=== PATIENT | female | born 1940 | race Caucasian/White ===

== ENCOUNTER → 2017-03-14 | Outpatient (CLI) | payer OTHER, BC ==
[~2017-03-14] MED LIST: CALC600T9 PO; CHOL400C PO; LATA0.009 OPB; LEVO75TA5 PO; LUTE15CA PO; MULT-506 PO; SIMV10TA2 PO; TIMO0.2528 OPB
--- NOTE | 2017-03-14 12:41 | MAMMOGRAPHY REPORT ---
BILATERAL DIGITAL SCREENING MAMMOGRAM WITH CAD: 03/14/2017 TECHNIQUE: Current study was also evaluated with a Computer Aided Detection (CAD) system. Bilateral CC and MLO views were obtained. COMPARISON: Comparison is made to exams dated: 03/08/2016 mammogram, 03/07/2015 mammogram, 03/01/2014 m ammogram, 02/25/2013 mammogram, 02/21/2012 mammogram, and 02/19/2011 mammogram - [facility] [address]. BREAST COMPOSITION: The tissue of both breasts is heterogeneously dense, which may obscure small mas ses. FINDINGS: No suspicious masses, calcifications, or areas of architectural distortion are noted in ei ther breast. There has been no significant interval change compared to prior exams. IMPRESSION: ACR BI-RADS CATEGORY 1: NEGATIVE There is no mammographic evidence of malignancy. A 1 year screening mammogram is recommended. The pa tient will receive written notification of the results. Approximately 10% of breast cancers are not detected with mammography. A negative mammographic report should not delay biopsy if a clinically suggestive mass is present. Bibiana Miles M.D. ah/:03/14/2017 12:18:16 Police Artist: Teresa Avery RT(R)(M), [facility] letter sent: Normal 1/2 BI-RADS Code: ACR BI-RADS Category 1: Negative
== END | disposition home or self-care (01) ==
LOC: C.MAMM 10:14
PROVIDERS: ATTEND Family Medicine
DX: Z12.31 Encounter for screening mammogram for malignant neoplasm of breast (principal)

== ENCOUNTER 2017-07-11 13:44 | Emergency (ER) | payer OTHER, BC ==
[~2017-07-11] VITALS: Ht 154.9 cm; Wt 47.5 kg
[2017-07-11 13:53] VITALS: TEMP 36.5; Ht 154.9 cm; Wt 47.5 kg
[2017-07-11] MEDS ORDERED: CHOL1000 PO (14:09)
[2017-07-11] MEDS ORDERED: TMPOPS2510 OPB (14:09)
[2017-07-11] MEDS ORDERED: LEVO88TA3 PO (14:09)
--- NOTE | 2017-07-11 14:33 | DIAGNOSTIC IMAGING REPORT ---
CHEST ONE VIEW PORTABLE CLINICAL HISTORY: ABDOMINAL PAIN/GI pain COMPARISON STUDY: No previous studies for comparison. FINDINGS: The bones soft tissues and hemidiaphragms are normal. The cardiomediastinal silhouette is normal. The lungs are clear. The pulmonary vasculature is normal. Mild emphysematous change. Mild apical fibrotic change most likely chronic. IMPRESSION: Mild emphysematous change. No acute process. The above report was generated using voice recognition software. It may contain grammatical, syntax or spelling errors. Electronically signed by: Tan Woo M.D. 07/11/2017 2:31 PM Dictated Date/Time: 07/11/2017 2:31 PM
[2017-07-11 14:42] LABS: BASO % 0.4 %; BASO ABS # 0.02 K/uL (0-0.2); EOS % 1.3 %; EOS ABS # 0.07 K/uL (0-0.5); HEMOGLOBIN 15.2 g/dL (12.0-16.0); IG# 0.01 K/uL (0.00-0.02); LYMPH % 20.5 %; LYMPH ABS # 1.11 K/uL (1.2-3.4); MEAN CELL VOLUME 93.6 fL (80-100); MEAN CORPUSCULAR HEMOGLOBIN 32.3 pg (25-34); MEAN CORPUSCULAR HGB CONC 34.5 g/dl (32-36); MEAN PLATELET VOLUME 11.5 fL (7.4-10.4); MONO ABS # 0.27 K/uL (0.11-0.59); NEUT % 72.6 %; NEUT ABS # 3.93 K/uL (1.4-6.5); PLATELET COUNT 184 K/uL (130-400); RED CELL DISTRIBUTION WIDTH CV 13.8 % (11.5-14.5); RED CELL DISTRIBUTION WIDTH SD 47.4 fL (36.4-46.3); WHITE BLOOD COUNT 5.41 K/uL (4.8-10.8)
[2017-07-11 15:00] LABS: ALBUMIN 4.1 gm/dl (3.4-5.0); ALT/SGPT 29 U/L (12-78); BLOOD UREA NITROGEN 18 mg/dl (7-18); CALCIUM 9.6 mg/dl (8.5-10.1); CARBON DIOXIDE 29 mmol/L (21-32); CREATININE 0.71 mg/dl (0.60-1.20); GLUCOSE 94 mg/dl (70-99); LIPASE 268 U/L (73-393); POTASSIUM 4.3 mmol/L (3.5-5.1); SODIUM 139 mmol/L (136-145)
[2017-07-11 15:05] LABS: ALKALINE PHOSPHATASE 66 U/L (45-117); AST/SGOT 24 U/L (15-37)
--- NOTE | 2017-07-11 15:35 | DIAGNOSTIC IMAGING REPORT ---
ULTRASOUND RIGHT UPPER QUADRANT ABDOMEN CLINICAL HISTORY: Right upper quadrant abdominal pain. COMPARISON STUDY: No priors. TECHNIQUE: Real-time, grayscale, and color flow sonography of the right upper quadrant of the abdomen was performed. Images are reviewed in the transverse and longitudinal planes. FINDINGS: Liver: The liver is normal in size and echotexture. There is no intrahepatic biliary ductal dilatation. The main portal vein is patent. Gallbladder: The gallbladder is normal in appearance. No gallstones are identified. There is no gallbladder wall thickening or pericholecystic fluid. A sonographic Claros's sign is reportedly absent. The common bile duct measures up to 0.4 cm in diameter. Pancreas: Visualized portions of the pancreatic head and body are normal in appearance. The splenic vein is patent. Right kidney: Survey images of the right kidney demonstrate normal size and echotexture. There is no hydronephrosis. Ascites: None. IMPRESSION: Unremarkable sonographic assessment of the right upper quadrant. No gallstones are identified. Electronically signed by: Shahab Mena M.D. 07/11/2017 3:34 PM Dictated Date/Time: 07/11/2017 3:33 PM
[2017-07-11 15:56] VITALS: BP 126/73; PULSE 68; O2SAT 96
--- NOTE | 2017-07-11 16:05 | EMERGENCY ROOM VISIT NOTE ---
History Report prepared by Anyi: Bernardo Yoon Under the Supervision of: Dr. Pola Rene M.D. First contact with patient: 13:57 Chief Complaint: ABDOMINAL PAIN Stated Complaint: PAIN IN ABD REFERRED Nursing Triage Summary: pt reports she has left abd started 1 week ago. feels nauseated History of Present Illness The patient is a 77 year old white female with a past medical history of HDL, hypothyroid, PUD who presents to the ED with a cc of intermittent RUQ abdominal pain beginning one week ago. Positive nausea and low back pain. Pain is worsened with movement. Pain improves during middle of the day. No correlation with eating noted. Negative fevers, chills, vomiting, melena, hematochezia, hematemesis, urinary symptoms, chest pain, or SOB. No history of abdominal surgeries. No recent travel. No recent trauma or straining. Last normal bowel movement was today. No tobacco use. Patient seen at PCP's office just prior to arrival and referred to the ED for further evaluation. Source of History: patient Onset: One week ago Position: abdomen (RUQ) Timing: intermittent Modifying Factors (Worsening): movement Modifying Factors (Relieving): other (Middle of the day) Associated Symptoms: + nausea, + back pain (low), No fevers, No chills, No chest pain, No SOB, No vomiting, No melena, No hematochezia, No urinary symptoms Note: Negative: hematemesis. Review of Systems See HPI for pertinent positives and negatives. A total of ten systems were reviewed and were otherwise negative. Past Medical & Surgical Medical Problems: (1) Hyperlipemia (2) Hypothyroid (3) PUD (peptic ulcer disease) Family History Patient reports no known family medical history. Social History Smoking Status: Never Smoker Marital Status: Housing Status: lives with family Occupation Status: retired Current/Historical Medications Scheduled Calcium Carbonate-Vitamin D (Calcium + D), 1 TAB PO QAM Cholecalciferol (Vitamin D3), 1 TAB PO DAILY Levothyroxine Sodium (Levothyroxine Sodium), 1 TAB PO DAILYBB Lutein-Zeaxanthin (Lutein), 1 CAP PO QAM Multivitamin (Multivitamin), 1 TAB PO QAM Simvastatin (Zocor), 10 MG PO QPM Timolol Maleate (Timolol Maleate), 1 DROP OPB QAM Allergies Coded Allergies: Tetanus Toxoids (Verified Allergy, Unknown, RASH, 07/11/17) Physical Exam Vital Signs Date Time Temp Pulse Resp B/P (MAP) Pulse Ox O2 Delivery O2 Flow Rate FiO2 07/11/17 15:56 68 18 126/73 96 Room Air 07/11/17 14:18 64 07/11/17 13:53 36.5 74 18 143/83 98 Room Air Physical Exam GENERAL: Awake, alert, well-appearing, NAD HENT: Normocephalic, atraumatic. EYES: Normal conjunctiva. Sclera non-icteric. NECK: Supple. No nuchal rigidity. FROM. RESPIRATORY: CTAB, no rhonchi, wheezing, crackles CARDIAC: RRR, no MRG ABDOMEN: Soft, ND, BS+. No CVA TTP bilaterally. RUQ TTP. Mild right flank pain. Negative obturator and psoas. MSK: No chest wall TTP, no LE edema NEURO: GCS 15, CN 2-12 intact, moves all 4s on command SKIN: No rash or jaundice noted. Medical Decision & Procedures ER Provider Diagnostic Interpretation: Radiology results as stated below per my review and radiologist interpretation: ULTRASOUND RIGHT UPPER QUADRANT ABDOMEN FINDINGS: Liver: The liver is normal in size and echotexture. There is no intrahepatic biliary ductal dilatation. The main portal vein is patent. Gallbladder: The gallbladder is normal in appearance. No gallstones are identified. There is no gallbladder wall thickening or pericholecystic fluid. A sonographic Claros's sign is reportedly absent. The common bile duct measures up to 0.4 cm in diameter. Pancreas: Visualized portions of the pancreatic head and body are normal in appearance. The splenic vein is patent. Right kidney: Survey images of the right kidney demonstrate normal size and echotexture. There is no hydronephrosis. Ascites: None. IMPRESSION: Unremarkable sonographic assessment of the right upper quadrant. No gallstones are identified. Electronically signed by: Shahab Mena M.D. 07/11/2017 3:34 PM CHEST ONE VIEW PORTABLE FINDINGS: The bones soft tissues and hemidiaphragms are normal. The cardiomediastinal silhouette is normal. The lungs are clear. The pulmonary vasculature is normal. Mild emphysematous change. Mild apical fibrotic change most likely chronic. IMPRESSION: Mild emphysematous change. No acute process. The above report was generated using voice recognition software. It may contain grammatical, syntax or spelling errors. Electronically signed by: Tan Woo M.D. 07/11/2017 2:31 PM Laboratory Results 07/11/17 14:30 Red Blood Count 4.70, Mean Corpuscular Volume 93.6, Mean Corpuscular Hemoglobin 32.3, Mean Corpuscular Hemoglobin Concent 34.5, Mean Platelet Volume 11.5, Neutrophils (%) (Auto) 72.6, Lymphocytes (%) (Auto) 20.5, Monocytes (%) (Auto) 5.0, Eosinophils (%) (Auto) 1.3, Basophils (%) (Auto) 0.4, Neutrophils # (Auto) 3.93, Lymphocytes # (Auto) 1.11, Monocytes # (Auto) 0.27, Eosinophils # (Auto) 0.07, Basophils # (Auto) 0.02 07/11/17 14:30 Test 07/11/17 14:30 White Blood Count 5.41 K/uL (4.8-10.8) Red Blood Count 4.70 M/uL (4.2-5.4) Hemoglobin 15.2 g/dL (12.0-16.0) Hematocrit 44.0 % (37-47) Mean Corpuscular Volume 93.6 fL (80-100) Mean Corpuscular Hemoglobin 32.3 pg (25-34) Mean Corpuscular Hemoglobin Concent 34.5 g/dl (32-36) Platelet Count 184 K/uL (130-400) Mean Platelet Volume 11.5 fL (7.4-10.4) Neutrophils (%) (Auto) 72.6 % Lymphocytes (%) (Auto) 20.5 % Monocytes (%) (Auto) 5.0 % Eosinophils (%) (Auto) 1.3 % Basophils (%) (Auto) 0.4 % Neutrophils # (Auto) 3.93 K/uL (1.4-6.5) Lymphocytes # (Auto) 1.11 K/uL (1.2-3.4) Monocytes # (Auto) 0.27 K/uL (0.11-0.59) Eosinophils # (Auto) 0.07 K/uL (0-0.5) Basophils # (Auto) 0.02 K/uL (0-0.2) RDW Standard Deviation 47.4 fL (36.4-46.3) RDW Coefficient of Variation 13.8 % (11.5-14.5) Immature Granulocyte % (Auto) 0.2 % Immature Granulocyte # (Auto) 0.01 K/uL (0.00-0.02) Urine Color YELLOW Urine Appearance CLEAR (CLEAR) Urine pH 5.0 (4.5-7.5) Urine Specific [place] 1.025 (1.000-1.030) Urine Protein NEG (NEG) Urine Glucose (UA) NEG (NEG) Urine Ketones NEG (NEG) Urine Occult Blood TRACE (NEG) Urine Nitrite NEG (NEG) Urine Bilirubin NEG (NEG) Urine Urobilinogen NEG (NEG) Urine Leukocyte Esterase NEG (NEG) Urine WBC (Auto) 1-5 /hpf (0-5) Urine RBC (Auto) 0-4 /hpf (0-4) Urine Hyaline Casts (Auto) 1-5 /lpf (0-5) Urine Epithelial Cells (Auto) 0-5 /lpf (0-5) Urine Bacteria (Auto) NEG (NEG) Anion Gap 6.0 mmol/L (3-11) Est Creatinine Clear Calc Drug Dose 51.3 ml/min Estimated GFR () 96.6 Estimated GFR (Non- 83.3 BUN/Creatinine Ratio 25.7 (10-20) Calcium Level 9.6 mg/dl (8.5-10.1) Total Bilirubin 0.5 mg/dl (0.2-1) Direct Bilirubin 0.1 mg/dl (0-0.2) Aspartate Amino Transf (AST/SGOT) 24 U/L (15-37) Alanine Aminotransferase (ALT/SGPT) 29 U/L (12-78) Alkaline Phosphatase 66 U/L (45-117) Troponin I < 0.015 ng/ml (0-0.045) Total Protein 8.0 gm/dl (6.4-8.2) Albumin 4.1 gm/dl (3.4-5.0) Lipase 268 U/L (73-393) Laboratory results reviewed by me ECG Indication: abdominal pain Rate (beats per minute): 65 Rhythm: normal sinus Findings: PVC (x2), other (Normal intervals. Normal axis. No other STS or TWI. ) ED Course 1411: The patient was evaluated in room C10. A complete history and physical exam was performed. 1600: I reevaluated the patient. She would like to go home. Discussed results and discharge instructions: she verbalized understanding and agreement. The patient is ready for discharge. Medical Decision The patient is a 77 year old white female with a past medical history of HDL, hypothyroid, PUD who presents to the ED with a cc of intermittent RUQ abdominal pain beginning one week ago. Differential diagnosis includes etiologies such as appendicitis, diverticulitis , PUD, biliary pathology, UTI, pancreatitis, obstruction, mesenteric ischemia, aortic pathology, infections, inflammatory bowel disease, renal colic, as well as others were entertained. Patient was seen and evaluated the bedside. Patient is a very well-appearing 77 -year-old female who is referred for some right upper quadrant pain. Patient denies any urinary symptoms. Patient is under trauma. Patient has not had any prior surgeries to the abdomen. Patient denies nausea but has had the pain. Patient denies any recent strain or heavy lifting. Patient has had a recent bowel movement without any blood. Patient did have blood work completed along with an EKG, troponin, and right upper quadrant ultrasound. Patient also did have a chest x-ray. Patient chest x-ray showed emphysematous change. Her upper quadrant ultrasound didn't show any acute liver or gallbladder pathology. Patient had normal LFTs and lipase. Kidney function which was within normal limits. White blood cell count within normal limits. I did reassess the patient did not have any further pain or vomiting. Patient was told that I did not think that it was likely related to her heart, lungs, liver, pancreas, or gallbladder. Patient also did have a normal urinalysis. Patient EKG was nonischemic with a negative troponin. Patient was told to continue her Protonix and Maalox. Patient was also told she may take Tylenol for some possible musculoskeletal type pain. Patient was told to follow up closely with her primary care physician to return if symptoms worsen. Patient was offered a CT scan but declined this time. Patient was deemed suitable for outpatient follow-up and treatment. Patient was given strict follow-up, discharge, and return precautions. All questions were answered. Patient was deemed suitable for outpatient follow-up at this time. Patient agreed with the plan of care and was safely discharged home. Medication Reconcilliation Current Medication List: was personally reviewed by me Blood Pressure Screening Patient's blood pressure: Normal blood pressure Blood pressure disposition: Did not require urgent referral Impression Primary Impression: PUD (peptic ulcer disease) Additional Impression: RUQ pain Scribe Attestation The scribe's documentation has been prepared under my direction and personally reviewed by me in its entirety. I confirm that the note above accurately reflects all work, treatment, procedures, and medical decision making performed by me. Departure Information Dispostion Home / Self-Care Referrals Alex Pedro M.D. (PCP) Patient Instructions Abdominal Pain, My [facility] Additional Instructions Please return to the emergency department if you have worsening or recurrent symptoms not amenable to at-home treatment. Please call for a follow-up appointment with her primary care physician. Please take your medications as prescribed. If you have other concerns and/or complaints please feel free to also call your primary care physician's office or return the ED for further evaluation, management, and treatment. You may take tylenol 650 mg every 6 hours as needed for pain. Continue to take Protonix. You may also take Maalox. Take your medications as prescribed. You have been examined and treated today on an emergency basis only. This is not a substitute for, or an effort to provide, complete comprehensive medical care. It is impossible to recognize and treat all injuries or illnesses in a single emergency department visit. It is therefore important that you follow up closely with [facility], your PCP, and/or your specialist(s). Call as soon as possible for an appointment. Thank you for your time and consideration. I look forward to speaking with you again soon. Please don't hesitate to call us if you have any questions. Problem Qualifiers
== END 2017-07-11 16:22 | disposition home or self-care (01) ==
LOC: C.EDB 13:44 → C.EDC 16:22
DX: K27.9 Peptic ulcer, site unspecified, unspecified as acute or chronic, without hemorrhage or perforation (principal); R10.11 Right upper quadrant pain; R11.0 Nausea; M54.5 Low back pain; E78.5 Hyperlipidemia, unspecified; E03.9 Hypothyroidism, unspecified; Z79.899 Other long term (current) drug therapy; I49.3 Ventricular premature depolarization